=== PATIENT | female | born 1935 | race Caucasian/White ===

== ENCOUNTER 2016-12-16 14:04 | Emergency (ER) | payer MEDICARE, BC ==
--- NOTE | ~2016-12-16 | CR21 ---
[facility] A Service of [facility] / [facility] RADIOLOGY TEXT RESULTS PATIENT: LUIZ HICKS LOCATION: [facility] : 37 UNIT #: [id number] AGE: [address]: Agata Rice MD SEX: F ORDER DR: [id number] [facility]. [place], [place] [address] [id number] MR#: [id number] Acc #: [id number] NAME: LUIZ HICKS : 1935 SEX: F STUDY DATE/TIME: 12/16/2016 15:31 UNIT: [facility] ROOM: STUDY DESCRIPTION: CR Ankle Min 3 Views Rt Attending Physician: Agata Rice M.D. Ordering Physician: Agata Rice M.D. Primary Care Physician: Stanton Gooden M.D. MEDICAL IMAGING REPORT This report is preliminary unless electronic signature is present EXAM Right ankle 3 views, 12/16/2016 HISTORY Right ankle pain and swelling status post fall this morning. FINDINGS 3 views of the right ankle demonstrate old, healed fracture deformities involving the distal fibular diaphysis and the distal tip of the fibula. No acute fracture is seen. There is degenerative narrowing of the tibiotalar joint with subchondral cyst formation and sclerosis as well as osteophytic spurring about the anterior and posterior aspects of the tibiotalar joint. The bones are osteopenic. There is soft tissue swelling about the right ankle. A 5 mm plantar calcaneal spur is noted. 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 Old healed fractures involving the distal fibular diaphysis and the distal tip of the fibula. No acute abnormality except for soft tissue swelling about the right ankle. Dictated by... Jerry Pickett M.D. THIS IS AN ELECTRONICALLY VERIFIED REPORT Jerry Pickett M.D. at 12/17/2016 10:35 AM PATTY/john TD: 12/16/2016 21:52 JOB #: [id number] [facility] A Service of [facility] / [facility] RADIOLOGY TEXT RESULTS PATIENT: LUIZ HICKS LOCATION: [facility] #: [id number] : 37 UNIT #: [id number] AGE: [address]: Agata Rice MD SEX: F ORDER DR: MEDICAL IMAGING REPORT Page 1 of 1 COPY
[~2016-12-16 14:04] MED LIST: ACETAMINOPHEN325 MG PO; ALKA SELTZER; CIPRO PO; CYMBALTA PO; FLEXERIL10 MG PO; IBUPROFEN PO; OXYCONTIN 20MG20 MG PO; OXYCONTIN PO; SYNTHROID PO; VOLTAREN100 GM TP; [UNRECOGNIZED DRUG - REMARK]
== END 2016-12-16 16:50 | disposition home or self-care (01) ==
LOC: CED 14:04
DX: S96.911A Strain of unspecified muscle and tendon at ankle and foot level, right foot, initial encounter (principal); W19.XXXA Unspecified fall, initial encounter; Y92.009 Unspecified place in unspecified non-institutional (private) residence as the place of occurrence of the external cause
CPT/HCPCS: 29515; 73610; 99283